=== PATIENT | female | born 2005 | race Caucasian/White ===

== ENCOUNTER 2025-09-15 07:33 | Emergency (ER) | payer BC, SELFPAY ==
[2025-09-15 07:41] VITALS: BP 137/77; PULSE 82; RESP 14; TEMP 36.6; O2SAT 100
[2025-09-15 08:06] LABS: Hematocrit 43.0 % (37.0-47.0); Hemoglobin 15.1 g/dL (12.0-15.0); Immature Granulocyte Percent A 0.3 % (0-0.5); Lymphocytes Absolute Auto 1.59 K/mm3 (0.9-3.2); Mean Corpuscular HGB Conc 35.1 g/dl (32-36); Mean Corpuscular Hemoglobin 31.3 pg (26-34); Mean Corpuscular Volume 89.0 fl (80-100); Nucleated Red Blood Cells Absolute Auto 0.000 K/mm3 (0.0-0.012); Nucleated Red Blood Cells Perc 0.0 % (0.0-0.2); Platelet Count Result 409 k/mm3 (150-375); Red Blood Count 4.83 M/mm3 (4.2-5.4); White Blood Count 10.8 K/mm3 (4.5-10.0)
[2025-09-15] MEDS: ONDANSETRON INJ 4 MG/2 ML VIAL IV PUSH (08:06)
[2025-09-15 08:09] LABS: BEDSIDEPREGUCG Negative (Negative)
[2025-09-15 08:12] LABS: Add Urine Microscopic? YES; Appearance Urine Cloudy (Clear); Glucose Urine UA Negative (Negative); Leukocyte Esterase Ur Negative LEU/UL (Negative); Nitrate Urine Negative (Negative); Non Pathogenic Casts 0-2; Specific Grav Ur 1.035 (1.001-1.035)
[2025-09-15 08:21] LABS: Alanine Aminotransferase 66 U/L (6-35); Albumin Level 5.3 g/dL (3.5-5.1); Alkaline Phosphatase 97 U/L (38-126); Anion Gap 13 mmol/L (4-12); Aspartate Amino Transferase 45 U/L (14-36); Bilirubin,Total 1.3 mg/dL (0.2-1.3); Blood Urea Nitrogen 22 mg/dL (7-17); Calcium 10.3 mg/dL (8.4-10.2); Carbon Dioxide 17 mmol/L (22-30); Chloride 107 mmol/L (98-107); Estimated Glomerular Filt Rate > 60; Glucose 119 mg/dL (65-110); Lipase 61 U/L (23-300); Potassium 3.6 mmol/L (3.4-5.0); Sodium 137 mmol/L (137-145); Total Protein 9.6 g/dL (6.3-8.2)
--- NOTE | 2025-09-15 08:27 | ED_ITS ---
HPI - General Adult General Chief complaint: Nausea/Vomiting/Diarrhea Stated complaint: vomiting since tuesday Time Seen by Provider: 09/15/25 07:34 History of Present Illness HPI narrative: 19-year-old female present in the emergency department for evaluation for nausea vomiting that has been going on since Tuesday. Patient did have similar symptoms approximately 1 month ago and was seen at an outside hospital. Patient was diagnosed with viral etiology at that time. Patient states symptoms began worsening again. Patient does have some upper abdominal pain and symptoms of esophagitis. Patient denies any heavy alcohol consumption. Patient denies any prior history of gallbladder disease but does have a reported polyp that was identified at the outside hospital during her last bout emesis. Patient denies marijuana use. Patient denies any other significant past medical history. Patient is well-appearing at time of evaluation. Related Data Allergies Allergy/AdvReac Type Severity Reaction Status Date / Time amoxicillin Allergy Intermediate Hives Verified 09/15/25 07:46 Review of Systems 2 Review of Systems: All systems reviewed & are unremarkable except as noted in HPI and below Exam 2 Narrative: APPEARANCE: Well appearing, no pain, no distress, well-nourished. HEAD: normocephalic, atraumatic. EYES: PERRLA/EOMI, conjunctivae clear. NOSE: Normal no drainage EARS:TMS clear with good light reflex. THROAT: Pharynx clear, no exudate. NECK: Supple. No adenopathy, no masses. RESPIRATORY: Airway patent, respirations nonlabored. Clear to auscultation bilaterally, no rales, rhonchi, wheezing. CARDIOVASCULAR: Regular rate and rhythm without murmurs rubs or gallops. ABDOMINAL: Soft, nontender, nondistended, normal bowel sounds MUSCULOSKELETAL: Moves all extremities. Strength/ROM intact, No edema, No calf tenderness. NEURO: Alert. Cranial nerves II through XII intact. Good gait. Good coordination SKIN: Warm, dry. Normal Color Course Vital Signs Vital signs: Vital Signs Temperature 98 F 09/15/25 07:41 Pulse Rate 82 09/15/25 07:41 Respiratory Rate 14 09/15/25 07:41 Blood Pressure 137/77 09/15/25 07:41 Pulse Oximetry 100 09/15/25 07:41 Oxygen Delivery Room Air 09/15/25 07:41 Temperature 98 F 09/15/25 07:41 Pulse Rate 73 09/15/25 10:50 Respiratory Rate 18 09/15/25 10:50 Blood Pressure 143/61 H 09/15/25 10:50 Pulse Oximetry 100 09/15/25 10:50 Oxygen Delivery Room Air 09/15/25 07:41 Medical Decision Making MDM Narrative Medical decision making narrative: 19-year-old female presenting to the emergency department for evaluation for nausea vomiting. Patient as afebrile but does have a minor leukocytosis of 10.8 hemoglobin of 15.1 no, no significant acute abnormalities on her CMP patient did have an elevated lactic acid of 2.7. Patient was treated with 2 L of lactated Ringer's. Patient had a UA that was negative for infection positive for ketones. Patient was negative for . On re-evaluation patient states she does feel significantly improved patient did tolerate a p.o. challenge. Low concern for intra-abdominal pathology. Patient had a nonsurgical abdomen on exam. Patient was advised to follow a clear liquid diet for the next 1-3 days and patient is being provided Zofran for further nausea control. Differential Diagnosis Differential Diagnosis: Gastritis, enteritis, hyperemesis gravidarum, esophagitis Vital Signs Vital Signs: Vital Signs Temperature 98 F 09/15/25 07:41 Pulse Rate 82 09/15/25 07:41 Respiratory Rate 14 09/15/25 07:41 Blood Pressure 137/77 09/15/25 07:41 Pulse Oximetry 100 09/15/25 07:41 Oxygen Delivery Room Air 09/15/25 07:41 Temperature 98 F 09/15/25 07:41 Pulse Rate 73 09/15/25 10:50 Respiratory Rate 18 09/15/25 10:50 Blood Pressure 143/61 H 09/15/25 10:50 Pulse Oximetry 100 09/15/25 10:50 Oxygen Delivery Room Air 09/15/25 07:41 Lab Data Lab results reviewed: Yes I reviewed the patient's lab results. 09/15/25 08:00 09/15/25 08:00 Labs: Lab Results 09/15/25 09/15/25 09/15/25 Range/Units 08:00 08:07 10:22 WBC 10.8 H (4.5-10.0) K/mm3 RBC 4.83 (4.2-5.4) M/mm3 Hgb 15.1 H (12.0-15.0) g/dL Hct 43.0 (37.0-47.0) % MCV 89.0 (80-100) fl MCH 31.3 (26-34) pg MCHC 35.1 (32-36) g/dl RDW 13.5 (11.5-14.5) % Plt Count 409 H (150-375) k/mm3 MPV 8.5 (7.4-10.4) fl Immature Gran % (Auto) 0.3 (0-0.5) % Neut % (Auto) 77.1 H (45.5-73.1) % Lymph % (Auto) 14.7 L (18.3-44.2) % [place] % (Auto) 7.6 (2.6-8.5) % Eos % (Auto) 0.0 (0-4.4) % Baso % (Auto) 0.3 (0.2-1.2) % Lymph # (Auto) 1.59 (0.9-3.2) K/mm3 [place] # (Auto) 0.8 H (0.1-0.6) K/mm3 Eos # (Auto) 0.0 (0-0.3) K/mm3 Baso # (Auto) 0.0 (0.0-0.1) K/mm3 Abs Immat Gran (auto) 0.03 (0.00-0.031) K/mm3 Absolute Neuts (auto) 8.3 H (1.3-6.7) K/mm3 Absolute Nucleated RBC 0.000 (0.0-0.012) K/mm3 Nucleated RBC % 0.0 (0.0-0.2) % Sodium 137 (137-145) mmol/L Potassium 3.6 (3.4-5.0) mmol/L Chloride 107 (98-107) mmol/L Carbon Dioxide 17 L (22-30) mmol/L Anion Gap 13 H (4-12) mmol/L BUN 22 H (7-17) mg/dL Creatinine 0.77 (0.7-1.0) mg/dL Estim Creat Clear Calc Not Reportable Estimated GFR > 60 (59 - ) Glucose 119 H (65-110) mg/dL Lactic Acid 2.7 H 2.0 (0.7-2.0) mmol/L Calcium 10.3 H (8.4-10.2) mg/dL Total Bilirubin 1.3 (0.2-1.3) mg/dL AST 45 H (14-36) U/L ALT 66 H (6-35) U/L Alkaline Phosphatase 97 (38-126) U/L Total Protein 9.6 H (6.3-8.2) g/dL Albumin 5.3 H (3.5-5.1) g/dL Lipase 61 (23-300) U/L Urine Color Yellow (Yellow) Urine Appearance Cloudy H (Clear) Urine pH 6.0 (5.0-9.0) Ur Specific [place] 1.035 (1.001-1.035) Urine Protein 1+ H (Negative) mg/dL Urine Glucose (UA) Negative (Negative) mg/dL Urine Ketones 2+ H (Negative) mg/dL Ur Blood (Man) Negative (Negative) Urine Nitrate Negative (Negative) Urine Bilirubin Negative (Negative) Urine Urobilinogen 1.0 (<2.0) mg/dL Leukocyte Esterase Rfl Negative (Negative) MICHELLE/UL Urine RBC 0-2 (0-2) /hpf Urine WBC 0-5 (0-3) /hpf Ur Squamous Epith Cells Few (Few) /hpf Urine Bacteria None seen /hpf Urine Casts 0-2 POC Urine HCG, Qual Negative (Negative) Discharge Plan Discharge Clinical Impression: Nausea & vomiting Patient Disposition: Home Condition: Stable Instructions: Antibiotic Form, Clear Liquid Diet (ED), Acute Nausea and Vomiting (ED) Additional Instructions: Zofran as needed for nausea control. Clear liquid diet for the next 1-3 days. Have close follow-up with your primary care physician. If you have any worsening symptoms then please call or return to the emergency department. Patient Language: Y[place] Prescriptions: New ondansetron 4 mg tablet,disintegrating 4 mg PO Q8H PRN (Reason: nausea and vomiting) Qty: 14 0RF Follow-up/Referrals: PHYSICIAN,HELP DESK REPRESENTATIVE [Primary Care Provider, Internal Medicine]
[2025-09-15] MEDS: PANTOPRAZOLE SODIUM IV 40 MG VIAL IV PUSH (08:41)
[2025-09-15] MEDS: LACTATED RINGERS 1,000 ML 999 ML IV CONT ×2 (08:41)
[2025-09-15 10:50] VITALS: BP 143/61; PULSE 73; RESP 18; O2SAT 100
== END 2025-09-15 10:52 | disposition home or self-care (01) ==
PROVIDERS: Emergency Provider Emergency Medicine
DX: R11.2 Nausea with vomiting, unspecified (principal)
CPT/HCPCS: 36415; 80053; 81001; 81025; 83605; 83690; 85025; 96361; 96374; 96375; 99284; J2405; J2470; J7120